=== PATIENT | male | born 1950 | race Caucasian/White ===

== ENCOUNTER 2024-03-03 15:28 | Emergency (ER) | payer MEDICAID, MEDICARE ==
[2024-03-03 16:16] LABS: APPEARANCE,URINE TURBID (CLEAR); BILIRUBIN,URINE NEGATIVE (NEGATIVE); COLOR,URINE YELLOW (YELLOW); GLUCOSE,URINE NEGATIVE (NEGATIVE); KETONES,URINE NEGATIVE (NEGATIVE); LEUKOCYTE ESTERASE,URINE LARGE (NEGATIVE); NITRITE,URINE NEGATIVE (NEGATIVE); OCCULT BLOOD,URINE LARGE (NEGATIVE); PH,URINE 5.5 (5.0-8.0); PROTEIN,URINE 100 mg/dL (NEGATIVE); UROBILINOGEN,URINE 0.2 EU/dL (0.2-1.0)
[2024-03-03 16:18] VITALS: BP 141/82; PULSE 118
[2024-03-03 16:23] LABS: AMORPHOUS SEDIMENT,URINE NOT SEEN; BACTERIA,URINE MANY; EPITHELIAL CELLS,URINE RARE; MUCUS,URINE RARE; RBC,URINE PACKED (0-5); WBC,URINE PACKED (0-5)
== END 2024-03-03 16:59 | disposition home or self-care (01) ==
LOC: JP.ED 15:28
DX: N39.0 Urinary tract infection, site not specified (principal); F17.210 Nicotine dependence, cigarettes, uncomplicated
CPT/HCPCS: 81001; 87086; 87088; 87186; 99283

== ENCOUNTER 2024-03-17 15:21 | Emergency (ER) | payer MEDICARE ==
[2024-03-17 15:35] VITALS: BP 157/89; PULSE 118
[2024-03-17 16:17] LABS: BASOPHILS ABSOLUTE AUTO 0.11 K/uL (0.00-0.10); BASOPHILS PERCENT AUTO 0.7 % (0.1-1.3); EOSINOPHILS ABSOLUTE AUTO 0.12 K/uL (0.00-0.40); EOSINOPHILS PERCENT AUTO 0.7 % (0.0-5.4); HEMATOCRIT 40.8 % (38.4-49.7); HEMOGLOBIN 13.6 g/dL (12.9-16.9); IMMATURE GRAN ABSOLUTE AUTO 0.05 K/uL (0.00-0.23); IMMATURE GRAN PERCENT AUTO 0.3 % (0.0-0.7); LYMPHOCYTES ABSOLUTE AUTO 3.69 K/uL (0.8-3.3); MEAN CORPUSCULAR HEMOGLOBIN 28.8 pg (31.6-35.5); MEAN CORPUSCULAR HGB CONC 33.3 g/dL (31.6-35.5); MEAN CORPUSCULAR VOLUME 86.3 fL (81.4-99.0); MONOCYTES ABSOLUTE AUTO 1.18 K/uL (0.20-0.90); NEUTROPHILS ABSOLUTE AUTO 11.63 K/uL (1.0-7.6); NEUTROPHILS PERCENT AUTO 69.3 % (40.0-78.1); PLATELET COUNT,PLT 549 K/uL (130-375); RED BLOOD CELL COUNT 4.73 M/uL (4.14-5.76); WHITE BLOOD CELL COUNT,WBC 16.8 K/uL (3.2-11.0)
[2024-03-17 16:36] LABS: APPEARANCE,URINE TURBID (CLEAR); BILIRUBIN,URINE NEGATIVE (NEGATIVE); COLOR,URINE YELLOW (YELLOW); GLUCOSE,URINE NEGATIVE (NEGATIVE); KETONES,URINE NEGATIVE (NEGATIVE); LEUKOCYTE ESTERASE,URINE LARGE (NEGATIVE); NITRITE,URINE NEGATIVE (NEGATIVE); OCCULT BLOOD,URINE MODERATE (NEGATIVE); PROTEIN,URINE 30 mg/dL (NEGATIVE); UROBILINOGEN,URINE 0.2 EU/dL (0.2-1.0)
[2024-03-17 16:38] LABS: BACTERIA,URINE MANY; EPITHELIAL CELLS,URINE RARE; MUCUS,URINE NOT SEEN; WBC,URINE PACKED (0-5)
[2024-03-17 16:39] LABS: AMORPHOUS SEDIMENT,URINE FEW
[2024-03-17 16:51] LABS: CALCIUM 9.4 mg/dL (8.5-10.1); CREATININE 1.4 mg/dL (0.8-1.3); EST CRCL DRUG DOSING (CG) 43.24 mL/min; POTASSIUM,K 3.5 mmol/L (3.6-5.2)
[2024-03-17 16:52] LABS: ANION GAP 15.5 mmol/L (5.0-14.0)
== END 2024-03-17 17:17 | disposition home or self-care (01) ==
LOC: JP.ED 15:21
DX: N39.0 Urinary tract infection, site not specified (principal); F17.210 Nicotine dependence, cigarettes, uncomplicated; Z79.899 Other long term (current) drug therapy
CPT/HCPCS: 36415; 51798; 80048; 81001; 85025; 99283

== ENCOUNTER 2024-03-27 07:50 | Emergency (ER) | payer MEDICARE ==
[2024-03-27 08:15] VITALS: BP 154/84; PULSE 111
[2024-03-27 08:55] LABS: APPEARANCE,URINE TURBID (CLEAR); BILIRUBIN,URINE SMALL (NEGATIVE); COLOR,URINE YELLOW (YELLOW); GLUCOSE,URINE NEGATIVE (NEGATIVE); KETONES,URINE NEGATIVE (NEGATIVE); LEUKOCYTE ESTERASE,URINE LARGE (NEGATIVE); NITRITE,URINE NEGATIVE (NEGATIVE); OCCULT BLOOD,URINE LARGE (NEGATIVE); PH,URINE 5.5 (5.0-8.0); PROTEIN,URINE 100 mg/dL (NEGATIVE); UROBILINOGEN,URINE 0.2 EU/dL (0.2-1.0)
[2024-03-27 09:05] LABS: WBC,URINE PACKED (0-5)
== END 2024-03-27 09:07 | disposition home or self-care (01) ==
LOC: JP.ED 07:50
DX: N39.0 Urinary tract infection, site not specified (principal); F17.210 Nicotine dependence, cigarettes, uncomplicated; Z79.899 Other long term (current) drug therapy
CPT/HCPCS: 81001; 99283

== ENCOUNTER 2024-05-05 06:30 | Emergency (ER) | payer MEDICARE ==
[2024-05-05 07:33] LABS: BASOPHILS ABSOLUTE AUTO 0.04 K/uL (0.00-0.10); BASOPHILS PERCENT AUTO 0.2 % (0.1-1.3); HEMATOCRIT 33.4 % (38.4-49.7); HEMOGLOBIN 11.7 g/dL (12.9-16.9); IMMATURE GRAN ABSOLUTE AUTO 0.12 K/uL (0.00-0.23); IMMATURE GRAN PERCENT AUTO 0.6 % (0.0-0.7); LYMPHOCYTES ABSOLUTE AUTO 1.49 K/uL (0.8-3.3); LYMPHOCYTES PERCENT AUTO 7.6 % (11.4-47.7); MEAN CORPUSCULAR HEMOGLOBIN 29.8 pg (31.6-35.5); MEAN CORPUSCULAR VOLUME 85.2 fL (81.4-99.0); MONOCYTES ABSOLUTE AUTO 0.98 K/uL (0.20-0.90); NEUTROPHILS ABSOLUTE AUTO 16.66 K/uL (1.0-7.6); NEUTROPHILS PERCENT AUTO 85.6 % (40.0-78.1); PLATELET COUNT,PLT 274 K/uL (130-375); RED BLOOD CELL COUNT 3.92 M/uL (4.14-5.76); WHITE BLOOD CELL COUNT,WBC 19.5 K/uL (3.2-11.0)
[2024-05-05 07:55] LABS: A/G RATIO 0.7 (1.2-2.2); ALANINE AMINOTRANSFERASE,ALT 12 U/L (12-78); ALBUMIN 2.6 g/dL (3.4-5.0); ALKALINE PHOSPHATASE 63 U/L (46-116); ANION GAP 14.7 mmol/L (5.0-14.0); ASPARTATE AMNIOTRANSFERASE,AST 8 U/L (15-37); BILIRUBIN TOTAL 0.9 mg/dL (0.2-1.0); BLOOD UREA NITROGEN,BUN 14 mg/dL (7-18); CALCIUM 8.9 mg/dL (8.5-10.1); CARBON DIOXIDE,CO2 24 mmol/L (21-32); CHLORIDE,CL 100 mmol/L (100-108); CREATININE 1.2 mg/dL (0.8-1.3); EST CRCL DRUG DOSING (CG) 51.76 mL/min; ESTIMATED GFR 64 mL/min (>60); GLUCOSE RANDOM 129 mg/dL (74-106); MAGNESIUM 1.4 mg/dL (1.8-2.4); PHOSPHORUS 2.6 mg/dL (2.5-4.9); POTASSIUM,K 3.7 mmol/L (3.6-5.2); PROTEIN TOTAL,TP 6.5 g/dL (6.4-8.2); SODIUM,NA 135 mmol/L (140-148)
[2024-05-05 08:30] LABS: APPEARANCE,URINE CLEAR (CLEAR); BILIRUBIN,URINE NEGATIVE (NEGATIVE); COLOR,URINE YELLOW (YELLOW); GLUCOSE,URINE NEGATIVE (NEGATIVE); KETONES,URINE NEGATIVE (NEGATIVE); LEUKOCYTE ESTERASE,URINE TRACE (NEGATIVE); NITRITE,URINE NEGATIVE (NEGATIVE); OCCULT BLOOD,URINE TRACE-LYSED (NEGATIVE); PROTEIN,URINE NEGATIVE (NEGATIVE); UROBILINOGEN,URINE 0.2 EU/dL (0.2-1.0)
[2024-05-05 08:34] LABS: AMORPHOUS SEDIMENT,URINE NOT SEEN; BACTERIA,URINE NOT SEEN; EPITHELIAL CELLS,URINE NOT SEEN; MUCUS,URINE NOT SEEN; WBC,URINE 0-5 (0-5)
[2024-05-05] MEDS: Sodium Chloride 0.9% 1,000 ML IV ONE (09:19)
[2024-05-05] MEDS: Iopamidol 612 MG/ML 100 ML Bottle IV STA (09:31)
[2024-05-05] MEDS: Sodium Chloride 0.9% 80 ML IV STA (09:31)
[2024-05-05] MEDS ORDERED: Ertapenem 1 GM in Sodium Chloride 0.9% 50 ML IV ONE (11:46)
[2024-05-05] MEDS: Ertapenem 1 GM in Sodium Chloride 0.9% 50 ML IV ONE (12:23)
[2024-05-05 12:29] VITALS: BP 144/84; PULSE 100
== END 2024-05-05 13:11 | disposition home or self-care (01) ==
LOC: JP.ED 06:30
DX: T81.49XA Infection following a procedure, other surgical site, initial encounter (principal); R10.9 Unspecified abdominal pain; Z79.899 Other long term (current) drug therapy; Z87.891 Personal history of nicotine dependence
CPT/HCPCS: 36415; 74177; 80053; 81001; 83690; 83735; 84100; 84145; 85025; 86140; 96365; 99284; J1335; J3490; J7030; Q9967

== ENCOUNTER 2024-05-05 16:20 | Emergency (ER) | payer MEDICARE ==
[2024-05-05 17:22] LABS: BASOPHILS ABSOLUTE AUTO 0.04 K/uL (0.00-0.10); BASOPHILS PERCENT AUTO 0.2 % (0.1-1.3); EOSINOPHILS ABSOLUTE AUTO 0.16 K/uL (0.00-0.40); EOSINOPHILS PERCENT AUTO 0.9 % (0.0-5.4); HEMATOCRIT 34.6 % (38.4-49.7); HEMOGLOBIN 12.1 g/dL (12.9-16.9); IMMATURE GRAN ABSOLUTE AUTO 0.06 K/uL (0.00-0.23); IMMATURE GRAN PERCENT AUTO 0.3 % (0.0-0.7); LYMPHOCYTES ABSOLUTE AUTO 1.61 K/uL (0.8-3.3); LYMPHOCYTES PERCENT AUTO 9.4 % (11.4-47.7); MEAN CORPUSCULAR HEMOGLOBIN 29.8 pg (31.6-35.5); MEAN CORPUSCULAR VOLUME 85.2 fL (81.4-99.0); MONOCYTES ABSOLUTE AUTO 1.07 K/uL (0.20-0.90); MONOCYTES PERCENT AUTO 6.2 % (3.3-12.6); NEUTROPHILS ABSOLUTE AUTO 14.27 K/uL (1.0-7.6); PLATELET COUNT,PLT 305 K/uL (130-375); RED BLOOD CELL COUNT 4.06 M/uL (4.14-5.76); WHITE BLOOD CELL COUNT,WBC 17.2 K/uL (3.2-11.0)
[2024-05-05 17:38] LABS: CALCIUM 9.2 mg/dL (8.5-10.1); CREATININE 1.2 mg/dL (0.8-1.3); EST CRCL DRUG DOSING (CG) 51.76 mL/min; POTASSIUM,K 3.7 mmol/L (3.6-5.2)
[2024-05-05 17:46] LABS: ANION GAP 15.7 mmol/L (5.0-14.0)
[2024-05-05] MEDS: Morphine 4 MG/ML Syringe IVPUSH ONE (18:10)
[2024-05-05] MEDS: Ketorolac 30 MG/ML SDV IVPUSH ONE (18:38)
[2024-05-05 19:11] VITALS: BP 137/88; PULSE 95
== END 2024-05-05 20:42 ==
LOC: JP.ED 16:20
DX: T81.43XA Infection following a procedure, organ and space surgical site, initial encounter (principal); Z79.899 Other long term (current) drug therapy; Z79.2 Long term (current) use of antibiotics
CPT/HCPCS: 36415; 80048; 85025; 87086; 96374; 96375; 99285; J1885; J2270